=== PATIENT | female | born 1980 | race Caucasian/White ===

== ENCOUNTER 2017-01-08 08:13 | Day surgery (SDC) | payer BC ==
--- NOTE | 2017-01-07 05:35 | PREOPHP ---
DATE OF ADMISSION: 01/08/2017 HISTORY OF PRESENT ILLNESS: This is a 36-year-old female, 2, para 2 with a history of a tub al ligation and a and a vaginal delivery. This patient has seen me recently, referred by her physician due to a history of pelvic pain and endometriosis. She has been complaining of daily pain relieved partially only with narcotics. The patient stated control pills did not work fo r her. She has menometrorrhagia, changing pads every hour or 2 hours for 2 to 3 days and she has a history of anemia. She had a history of right salpingo-oophorectomy in 2014, had a tubal ligation a nd a and a vaginal delivery. She had been treated with Lupron for 1 year with relief and back to having pain again and menometrorrhagia. ALLERGIES: VICODIN. FAMILY HISTORY: Positive for hypertension and diabetes. At the present time, she had been treated recently for UTI and because of her age and the heavy nirmala ods, that is major complaint for her, and ablation is being offered with a D and C to rule out malig orion, hysteroscopy to see if they are endocavitary fibroids and try to avoid a hysterectomy at this early age. The patient is not wanting to be on control pills because she says they do not co ntrol her periods, nor the Depo shot that makes her feel bad, so we will try a D and C and hydrother mal ablation. PHYSICAL EXAMINATION: VITAL SIGNS: Stable. Blood pressure is 100/60, pulse is 80. She weighs 151. She is 5 feet 3. HE AD AND NECK: Normal. CHEST: Clear. HEART: Normal sinus rhythm. LUNGS: Clear. BREASTS: Soft, nontender, no masses. ABDOMEN: Soft, nontender, no masses. GENITALIA: With normal external genitalia, normal vagina. Uterus is retroverted, flexed with fibro ids, very painful mobilization, and adnexa are nonpalpable. EXTREMITIES: Normal with normal pulses and no edema. DIAGNOSES: Intractable menometrorrhagia, fibroid uterus, endometriosis, previous right salpingo-oop horectomy, and tubal ligation. PLAN: The patient is undergoing a hysteroscopy, D and C, and hydrothermal ablation to try to contro l her heavy bleeding and anemia. She has been advised of the possible risks and possible complicati ons of the procedure with her alternatives and options. Written information was provided. She had no more questions and agreed to go ahead with the procedure with full understanding and no more ques tions. Dictated By: SARA VICTORIA/RAMIRO Conf#: [id number] DID#: [id number]
[2017-01-07 11:44] VITALS: BMI 24.2
[2017-01-08] VITALS (19 sets, daily range): BP systolic 115–166; BP diastolic 59–80; PULSE 46–56; RESP 6–19; Ht 157.5 cm; Wt 65.2 kg
[~2017-01-08] VITALS: Ht 157.5 cm; Wt 65.2 kg
[~2017-01-08 08:13] MED LIST: DEXTROSE 5%-LR 1,000 ML IV SCH
--- NOTE | 2017-01-08 10:07 | HPN ---
Date/Time of Note Date/Time of Note DATE: 01/08/17 TIME: 10:07 Interval H&P Admission Note Pt. seen H&P reviewed: No system changes SARA LOW MD Jan 08, 2017 10:07
[2017-01-08] MEDS ORDERED: MIDAZOLAM 1 MG/ML 2 ML INJ ONE ×2 (10:20→11:05)
[2017-01-08] MEDS ORDERED: LIDOCAINE 2% (SDV) 5 ML INJ ONE (11:24)
[2017-01-08] MEDS ORDERED: PROPOFOL 20 ML ONE (11:24)
[2017-01-08] MEDS ORDERED: CEFAZOLIN 1 GM INJ ONE (11:25)
[2017-01-08] MEDS ORDERED: ONDANSETRON 4 MG INJ ONE (11:29)
[2017-01-08] MEDS ORDERED: METOCLOPRAMIDE 10 MG INJ IV PRN (11:30)
[2017-01-08] MEDS ORDERED: ONDANSETRON 4 MG INJ IV PRN (11:30)
[2017-01-08] MEDS ORDERED: DIPHENHYDRAMINE 50 MG INJ IV PRN (11:30)
--- NOTE | 2017-01-08 11:40 | PD.PPDC ---
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
[2017-01-08] MEDS: FENTAnyl 50 MCG/ML VIAL IV PRN ×3 (11:43→12:47)
--- NOTE | 2017-01-08 11:46 | OPR ---
Date/Time of Note Date/Time of Note DATE: 01/08/17 TIME: 11:43 Operative Report Procedure Date: Jan 08, 2017 Preoperative Diagnosis intractable menometrorrhagia fibroid uterus endometriosis previous RSO TL. Postoperative Diagnosis SAME Operation Performed FRACTIONAL D&C HYSTEROSCOPY ENDOMETRIAL HYDROTHERMAL ABLATION Surgeon: SARA LOW MD Anesthesia: general Anesthesiologist: SHARON VALVERDE MD Estimated Blood Loss: minimal Complications: None Pt Condition Post Procedure: stable Disposition: PACU SARA LOW MD Jan 08, 2017 11:46
[2017-01-08] MEDS: KETOROLAC 30 MG INJ IV PRN ×2 (11:52→13:48)
[2017-01-08] MEDS ORDERED: OXYCODONE/ACETAMINOPHEN (5/325) TAB PO ONE (14:00)
[2017-01-08] MEDS ORDERED: ACETAMINOPHEN/CODEINE #3 TAB PO ONE (14:00)
--- NOTE | 2017-01-08 17:30 | RADRPT ---
Vent Rate: 57 bpm RR Interval: 0 msec LA Interval: 150 msec QRS Duration: 84 msec QT Interval: 444 msec QTC Interval: 432 msec P-R-T [place]: 43 - 69 - 31 degrees Sinus bradycardia with marked sinus arrhythmia Otherwise normal ECG Electronically Signed By: Lang Silva [id number]
--- NOTE | 2017-01-09 16:56 | OPR ---
DATE OF OPERATION: 01/08/2017 PROCEDURE: Fractional D and C, hysteroscopy, endometrial hydrothermal ablation. PREOPERATIVE DIAGNOSES: 1. Intractable menometrorrhagia. 2. Fibroid uterus. 3. Endometriosis. 4. Previous right salpingo-oophorectomy and tubal ligation. POSTOPERATIVE DIAGNOSES: 1. Intractable menometrorrhagia. 2. Fibroid uterus. 3. Endometriosis. 4. Previous right salpingo-oophorectomy and tubal ligation. SURGEON: Dr. Laguerre ANESTHESIA: General. ANESTHESIOLOGIST: Dr. Banuelos. COMPLICATIONS: None. PROCEDURE: The patient was given general anesthesia, placed in the lithotomy position. The perinea l and vaginal area were prepped and draped. A vaginal speculum was applied. The cervix was held. An endocervical curettage was done. The uterus was sounded to a depth of 10 cm and dilated and the scraping of the cavity was done and the scanty tissue was sent for histopathology. The hysteroscope was applied and we see that they are protruding fibroids to the endometrial cavity and at the ruthann l area. The media was warmed up to 90 degrees Celsius and for 10 minutes the media was circulating inside the lining of the uterus to produce thermal ablation. This was done successfully. The proce dure was finished, the hysteroscopy was done further again with good results on the ablation. The p rocedure was finished by removing all the instruments. The patient tolerated the procedure well and left the OR awake and stable. Sponge counts, instrument counts, needle counts were correct. Intra venous antibiotics were given for prophylaxis. Dictated By: SARA VICTORIA/RAMIRO Conf#: [id number] DID#: [id number]
--- NOTE | 2017-01-11 13:14 | DS ---
Date/Time of Note Date/Time of Note DATE: 01/11/17 TIME: 13:12 Discharge Summary Admission/Discharge Info Admit Date/Time Discharge Date/Time SAME DAY SURGERY Final Diagnosis INTRACTABLE MENOMETRORRHAGIA ENDOMETRIOSIS PREVIOUS RSO AND TL Patient Condition: Good Procedures FRACTIONAL D&C HYSTEROSCOPY Hospital Course UNEVENTFULL Home Meds No Active Prescriptions or Reported Meds SARA LOW MD Jan 11, 2017 13:14
== END 2017-01-08 15:40 | disposition home or self-care (01) ==
LOC: SDS 08:13
PROVIDERS: ATTEND Obstetrics & Gynecology
DX: N92.1 Excessive and frequent menstruation with irregular cycle (principal); D25.9 Leiomyoma of uterus, unspecified; N80.9 Endometriosis, unspecified; J45.909 Unspecified asthma, uncomplicated
CPT/HCPCS: 88305; 93005; J0690; J1885; J2250; J2405; J3010; J7121